=== PATIENT | female | born 1950 | race Caucasian/White ===

== ENCOUNTER 2018-11-01 09:30 | Inpatient (IN) | payer OTHER ==
[~2018-11-01] VITALS: Ht 157.5 cm; Wt 72.6 kg
[~2018-11-01 09:30] MED LIST: AMLODIPINE BESY10 MG PO; CHLORTHALIDONE25 MG PO; COZAAR100 MG PO; EZETIMIBE10 MG PO; METOP PO; PLAVIX75 MG PO; PNEU16DI2; ROSUVASTATIN CA20 MG PO
[2018-11-06] MEDS ORDERED: METOPROLOL SUC100 MG PO (08:26)
[2018-11-08] MEDS ORDERED: INTEGRA PLUS C1 EACH PO (08:31)
[2018-11-08] MEDS ORDERED: XARELTO10 MG PO (08:31)
[2018-11-08] MEDS ORDERED: OXYC1TAB9 PO (08:31)
== END 2018-11-08 18:18 | DRG 470 ==
LOC: EDSTATUS 09:30 → ADM 09:30 → O/R 11-06 05:00 → SURH 11-06 05:00 → ADM 12-15 09:15
PROVIDERS: ADMIT Orthopaedic Surgery Sports Medicine
PROC: 0SRC0J9 Replacement of Right Knee Joint with Synthetic Substitute, Cemented, Open Approach (ICD-10-PCS; principal; 2018-11-06 08:30)
DX: M17.11 Unilateral primary osteoarthritis, right knee (principal); I10 Essential (primary) hypertension; I25.10 Atherosclerotic heart disease of native coronary artery without angina pectoris

== ENCOUNTER 2021-03-05 08:30 | Inpatient (IN) | payer OTHER ==
[~2021-03-05] VITALS: Ht 157.5 cm; Wt 77.6 kg
[~2021-03-05 08:30] MED LIST changes: +INTEGRA PLUS C1 EACH PO; +METOPROLOL SUC100 MG PO; +OXYC1TAB9 PO; +XARELTO10 MG PO
[2021-03-09] MEDS ORDERED: OXYBUTYNIN CHLOR5 MG (14:34)
[2021-03-09] MEDS ORDERED: CHLORTHALIDONE25 MG (14:34)
[2021-03-11] MEDS ORDERED: INTEGRA PLUS C1 EACH PO (06:28)
[2021-03-11] MEDS ORDERED: OXYC1TAB9 PO (06:28)
[2021-03-11] MEDS ORDERED: BACTRIM DS TAB1 EACH PO (06:28)
[2021-03-11] MEDS ORDERED: ELIQUIS2.5 MG PO (06:28)
== END 2021-03-11 18:46 | disposition home or self-care (01) | DRG 470 ==
LOC: SURH 03-09 08:30 → SURG 03-09 08:54 → O/R 03-09 08:54 → SURH 03-09 12:45 → SURG 03-09 18:57
PROVIDERS: ADMIT Orthopaedic Surgery Sports Medicine; ATTEND Orthopaedic Surgery Sports Medicine
PROC: 3E0F7SF Introduction of Other Gas into Respiratory Tract, Via Natural or Artificial Opening (ICD-10-PCS; 2021-03-09)
PROC: 0SRD0J9 Replacement of Left Knee Joint with Synthetic Substitute, Cemented, Open Approach (ICD-10-PCS; principal; 2021-03-09 12:45)
DX: M17.12 Unilateral primary osteoarthritis, left knee (principal); I10 Essential (primary) hypertension; Z20.822 Contact with and (suspected) exposure to COVID-19